=== PATIENT | female | born 2000 | race Caucasian/White ===

== ENCOUNTER → 2019-02-25 13:44 | Outpatient (CLI) | payer MEDICAID, SELFPAY ==
[2019-02-25 15:07] LABS: Absolute Lymphocyte Count 2.66 X10^3/ul (0.83-4.51); Absolute Neutrophil Count 7.9 X10^3/uL (2.0-7.7); Basophil# 0.03 X10^3/uL; Basophil% 0.3 % (0-1); Eosinophil# 0.13 X10^3/uL; Eosinophils% 1.1 % (0-5); Hematocrit 44.2 % (37-47); Hemoglobin 14.9 g/dl (12.0-15.0); Lymphocyte # 2.66 X10^3/ul (4.0); Lymphocyte % 23.1 % (19-41); Mean Corp Hgb Conc 33.7 g/gl (32-36); Mean Corpuscular Hgb 29.7 pg (27.0-32.0); Mean Corpuscular Volume 88.2 fL (81-99); Mean Platelet Vol. 10.5 fl (6.2-12.0); Monocyte# 0.77 X10^3/uL; Monocyte% 6.7 % (0-10); Neutrophil % 68.6 % (47-70); Platelet Count 263 K/mm3 (150-450); RBC Distribution Width CV 12.5 % (11.6-14.6); RBC Distribution Width SD 39.3 fl (35.1-43.9); Red Blood Count 5.01 M/mm3 (4.2-5.4); White Blood Count 11.5 K/mm3 (4.4-11.0)
[2019-02-25 15:08] LABS: POSITIVE COUNT NO; POSITIVE DIFFERENTIAL NO; POSITIVE MORPHOLOGY NO
[2019-02-25 15:22] LABS: Hemoglobin A1c 5.7 % (4.2-6.3)
[2019-02-25 15:38] LABS: ALB/GLOB Ratio 0.9 RATIO (0.9-2.4); AST(SGOT) 11 U/L (15-37); Alanine Aminotransfer ALT/SGPT 28 U/L (13-56); Albumin, Serum 3.5 g/dL (3.2-5.0); Alkaline Phosphatase 92 U/L (45-117); Anion Gap 5 (5-15); BUN 7 mg/dL (7-18); BUN/Creat Ratio 9.5 RATIO (10-20); Calcium,Total 8.9 mg/dL (8.5-10.1); Chloride 108 mmol/L (98-107); Cholesterol 171 mg/dL (200); Creatinine, Serum 0.74 mg/dL (0.55-1.02); EST Glomerular Filtration Rate 107 mL/min (>60); Est Glom Filt Rate - Afr Amer 129 mL/min (>60); Globulin 4.1 g/dL (2.2-4.2); Glucose 85 mg/dL (74-106); High Density Lipoprotein 44 mg/dL; Potassium 4.6 mmol/L (3.5-5.1); Protein, Total 7.6 g/dL (6.4-8.2); Sodium Level 140 mmol/L (136-145); Thyroid Stim Hormone (TSH) 0.78 uIU/mL (0.358-3.74); Triglycerides 96 mg/dL; Very Low Density Lipoprotein 19 mg/dL (5-40)
== END ==
PROVIDERS: Referring Provider Nurse Practitioner Family; Visit Provider Nurse Practitioner Family
DX: Z13.220 Encounter for screening for lipoid disorders (principal); F32.9 Major depressive disorder, single episode, unspecified; N92.1 Excessive and frequent menstruation with irregular cycle; Z86.32 Personal history of gestational diabetes
CPT/HCPCS: 36415; 80053; 80061; 83036; 84443; 85025

== ENCOUNTER → 2019-07-14 16:02 | Outpatient (CLI) | payer MEDICAID, SELFPAY ==
[2019-07-14 20:38] LABS: Chlamydia Trachomatis by PCR Negative (Negative); Neisserai gonorrhoeae by PCR Negative (Negative); Probe Check PASS; Sample Adequacy Control PASS; Specimen Processing Control PASS
== END ==
PROVIDERS: Visit Provider Advanced Practice Midwife
DX: Z11.3 Encounter for screening for infections with a predominantly sexual mode of transmission (principal)
CPT/HCPCS: 87491; 87591

== ENCOUNTER → 2019-07-19 13:09 | Outpatient (CLI) | payer MEDICAID, SELFPAY ==
[2019-07-19 15:54] LABS: Color, Urine Yellow (Yellow); Glucose, Dipstick Normal (Normal); Ketone-Dipstick 5 mg/dl (Negative); Leukocyte Esterase-Dipstick Negative /ul (Negative); Nitrite-Dipstick Negative (Negative); Occult Blood-Urine 25 /ul (Negative); Protein-Dipstick Negative (Negative); Specific Gravity, Urine 1.015 (1.002-1.030); Urine Bilirubin Dipstick Negative (Negative); Urine Clarity Cloudy (Clear); Urine Urobilinogen Normal (Normal); Urine pH 6.5 (5.0 - 8.0)
[2019-07-19 15:59] LABS: Absolute Lymphocyte Count 1.88 X10^3/uL (0.83-4.51); Absolute Neutrophil Count 6.9 X10^3/uL (2.0-7.7); Basophil# 0.03 X10^3/uL; Basophil% 0.3 % (0-1); Eosinophil# 0.06 X10^3/uL; Eosinophils% 0.6 % (0-5); Hematocrit 41.2 % (37-47); Hemoglobin 13.7 g/dL (12.0-15.0); Lymphocyte # 1.88 X10^3/ul (4.0); Lymphocyte % 20.3 % (19-41); Mean Corp Hgb Conc 33.3 g/dL (32-36); Mean Corpuscular Hgb 29.7 pg (27.0-32.0); Mean Corpuscular Volume 89.4 fL (81-99); Mean Platelet Vol. 10.9 fl (6.2-12.0); Monocyte# 0.37 X10^3/uL; NRBC Flagged by Analyzer 0 % (0-5); Neutrophil # 6.88 X10^3/uL (2.7-7.7); Neutrophil % 74.6 % (47-70); Platelet Count 222 K/mm3 (150-450); RBC Distribution Width CV 11.9 % (11.6-14.6); RBC Distribution Width SD 38.4 fl (35.1-43.9); Red Blood Count 4.61 M/mm3 (4.2-5.4); White Blood Count 9.2 K/mm3 (4.4-11.0)
[2019-07-19 16:20] LABS: Glucose Challenge Gest 1H 50g 132 mg/dL (70-140); Thyroid Stim Hormone (TSH) 1.06 uIU/mL (0.358-3.74)
[2019-07-19 16:30] LABS: Amphetamine Urine VISTA NEGATIVE (<1000 ng/mL); Barbiturate Urine VISTA NEGATIVE (< 200 ng/mL); Benzodiazepine Urine VISTA NEGATIVE (< 200 ng/mL); Cocaine Urine VISTA NEGATIVE (< 300 ng/mL); Ecstacy Urine VISTA NEGATIVE (< 500 ng/mL); Methadone Urine VISTA NEGATIVE (< 300 ng/mL); PCP Urine VISTA NEGATIVE (< 25 ng/mL); THC Urine VISTA POSITIVE (< 50 ng/mL); Vista UDS pH Range 6
[2019-07-19 17:56] LABS: COTININE Drug Screen Positive (<200 ng/mL)
[2019-07-20 10:10] LABS: HIV - WCH Non-Reactive (Nonreactive); Hepatitis B Surface Antigen Non-Reactive (Nonreactive); Hepatitis C Antibody Non-Reactive (Nonreactive); Rubella IgG 65.1 IU/mL; Vitamin D,25 Hydroxy 17.5 ng/mL (29.95-100.01)
[2019-07-22 02:41] LABS: Prenatal RPR NONREACTIVE (NONREACTIVE)
== END ==
PROVIDERS: Visit Provider Advanced Practice Midwife
DX: Z34.80 Encounter for supervision of other normal pregnancy, unspecified trimester (principal)
CPT/HCPCS: 36415; 80307; 81002; 82306; 82950; 84443; 85025; 86703; 86762; 86803; 87340

== ENCOUNTER 2019-10-29 20:50 | Outpatient (CLI) | payer MEDICAID, SELFPAY ==
[2019-10-29 20:35] VITALS: BP 123/74; PULSE 76; RESP 15; TEMP 36.8; O2SAT 99; BMI 44.1
[2019-10-29 21:19] VITALS: BMI 44.1
[2019-10-29 21:42] LABS: ROM Internal Control Test YES-OK TO RESULT pt. (Internal QC); ROM Patient Test Negative (Negative)
[2019-10-29 22:15] VITALS: RESP 16; TEMP 36.9
--- NOTE | 2019-10-29 22:36 | OB.TRI.NOTE ---
History of Present Illness Date of Service: 10/29/19 Was patient seen by the physician?: Yes Reason For Visit: R/O RUPTURE Date of Service: 10/29/19 Final GIOVANNI: 03/02/20 Final GIOVANNI Source: US <20 weeks Gestational age: 22 Weeks and 1 Days History of Present Illness: Pt noticed a lot of discharge this afternoon and is concerned that her water has broken Allergies No Known Allergies Allergy (Verified 10/29/19 21:21) Laboratory Studies: Laboratory Tests 10/29/19 Range/Units 21:05 Vag Amniotic Fld Detect Negative (Negative) Physical Exam Vitals: Vital Signs Temp Pulse Resp BP Pulse Ox 98.4 F 76 16 123/74 H 99 10/29/19 22:15 10/29/19 20:35 10/29/19 22:15 10/29/19 20:35 10/29/19 20:35 General: Alert, Oriented x3, Cooperative, No apparent distress HEENT: PERRLA, EOMI Abdomen: Soft, Non Tender, Non-Distended, Passing Flatus, Gravid, Obese Extremities:: No cyanosis, Normal pulses Neurological: Cranial nerves II-XII grossly intact, Deep Tendon Reflexes 2+/4 and Symmetrical, Neuro grossly intact Cervix Dilation (cm): 0 - firm, posterior Station: -3 Effacement (%): 0 NST - FHR Rate Baby A Baseline: 140 Variability:: Moderate Accelerations:: 10 x 10 Decelerations:: None NST Reactive:: Appropriate for gestational age Uterine Activity:: None Impression/Plan Assessment: 19yo at 22w1d gestation by 7w4d US Membranes intact, likely leukorrhea of Plan: Discharge home w/increased rest, fluids RTO next scheduled PNV
== END 2019-10-29 22:15 | disposition home or self-care (01) ==
LOC: WPOUT 20:55 → OBT 20:57
PROVIDERS: Visit Provider Advanced Practice Midwife
DX: O26.892 Other specified pregnancy related conditions, second trimester (principal); N89.8 Other specified noninflammatory disorders of vagina; Z3A.22 22 weeks gestation of pregnancy
CPT/HCPCS: 59025; 59050; 84112; 99218; G0378

== ENCOUNTER → 2019-12-14 09:35 | Outpatient (CLI) | payer MEDICAID, SELFPAY ==
[2019-12-14 10:40] LABS: Hematocrit 37.3 % (37-47); Hemoglobin 12.6 g/dL (12.0-15.0); Mean Corp Hgb Conc 33.8 g/dL (32-36); Mean Corpuscular Hgb 31.1 pg (27.0-32.0); Mean Corpuscular Volume 92.1 fL (81-99); Mean Platelet Vol. 10.5 fl (6.2-12.0); Platelet Count 234 K/mm3 (150-450); RBC Distribution Width CV 12.4 % (11.6-14.6); RBC Distribution Width SD 41.4 fl (35.1-43.9); Red Blood Count 4.05 M/mm3 (4.2-5.4); White Blood Count 12.3 K/mm3 (4.4-11.0)
[2019-12-14 10:56] LABS: Glucose Challenge Gest 1H 50g 195 mg/dL (70-140)
[2019-12-14 11:15] LABS: Amphetamine Urine VISTA NEGATIVE (<1000 ng/mL); Barbiturate Urine VISTA NEGATIVE (< 200 ng/mL); Benzodiazepine Urine VISTA NEGATIVE (< 200 ng/mL); Cocaine Urine VISTA NEGATIVE (< 300 ng/mL); Ecstacy Urine VISTA NEGATIVE (< 500 ng/mL); Methadone Urine VISTA NEGATIVE (< 300 ng/mL); PCP Urine VISTA NEGATIVE (< 25 ng/mL); THC Urine VISTA NEGATIVE (< 50 ng/mL); Vista UDS pH Range 6
[2019-12-14 12:24] LABS: Vitamin D,25 Hydroxy 11.4 ng/mL
== END ==
PROVIDERS: Visit Provider Obstetrics & Gynecology
DX: O99.323 Drug use complicating pregnancy, third trimester (principal); F12.90 Cannabis use, unspecified, uncomplicated; Z3A.00 Weeks of gestation of pregnancy not specified
CPT/HCPCS: 36415; 80307; 82306; 82950; 85027

== ENCOUNTER → 2019-12-16 09:57 | Outpatient (CLI) | payer MEDICAID, SELFPAY ==
[2019-12-16 10:53] LABS: Glucose GTT-Gestation. Fasting 92 mg/dL (<105)
[2019-12-16 12:26] LABS: Glucose GTT-Gestational 1 Hr 196 mg/dL (<190)
[2019-12-16 13:52] LABS: Glucose GTT-Gestational 3 Hr 94 L (<145)
[2019-12-16 14:40] LABS: Glucose GTT-Gestational 2 Hr 125 mg/dL (<165)
== END ==
PROVIDERS: Obstetrics & Gynecology; PCP Nurse Practitioner Family; Referring Provider Obstetrics & Gynecology; Visit Provider Obstetrics & Gynecology
DX: O99.810 Abnormal glucose complicating pregnancy (principal); Z3A.00 Weeks of gestation of pregnancy not specified
CPT/HCPCS: 36415; 82951; 82952

== ENCOUNTER 2019-12-29 13:48 | Outpatient (RCR) | payer MEDICAID, SELFPAY | END 2019-12-29 23:59 | disposition home or self-care (01) | LOC: DC 13:48 | PROVIDERS: PCP Nurse Practitioner Family; Visit Provider Obstetrics & Gynecology | DX: Z71.3 Dietary counseling and surveillance (principal); O24.419 Gestational diabetes mellitus in pregnancy, unspecified control; Z3A.00 Weeks of gestation of pregnancy not specified | CPT/HCPCS: 97802 ==

== ENCOUNTER → 2020-02-08 | Outpatient (CLI) | payer MEDICAID, SELFPAY | END | disposition home or self-care (01) | PROVIDERS: Referring Provider Obstetrics & Gynecology; Visit Provider Obstetrics & Gynecology | DX: Z36.85 Encounter for antenatal screening for Streptococcus B (principal) | CPT/HCPCS: 87077; 87081; 87186 ==

== ENCOUNTER 2020-02-25 07:04 | Inpatient (IN) | payer MEDICAID, SELFPAY ==
[2020-02-25] VITALS (60 sets, daily range): BP systolic 87–147; BP diastolic 40–101; PULSE 48–101; TEMP 36.1–37.1; O2SAT 94–100; BMI 44.5
[2020-02-25] MEDS: Lactated Ringers 1,000 ML 50 ML IV (07:35)
[2020-02-25] MEDS: Oxytocin 30 units/NS 500 ml 30 UNITS/500 ML IV.SOLN IV (07:58)
[2020-02-25 08:09] LABS: Absolute Lymphocyte Count 2.56 X10^3/uL (0.83-4.51); Absolute Neutrophil Count 10.9 X10^3/uL (2.0-7.7); Basophil# 0.03 X10^3/uL; Basophil% 0.2 % (0-1); Eosinophils% 0.7 % (0-5); Hematocrit 36.1 % (37-47); Hemoglobin 12.3 g/dL (12.0-15.0); Lymphocyte # 2.56 X10^3/ul (4.0); Lymphocyte % 17.8 % (19-41); Mean Corp Hgb Conc 34.1 g/dL (32-36); Mean Corpuscular Volume 90.9 fL (81-99); Mean Platelet Vol. 10.6 fl (6.2-12.0); Monocyte# 0.74 X10^3/uL; Monocyte% 5.1 % (0-10); NRBC Flagged by Analyzer 0 % (0-5); Neutrophil # 10.89 X10^3/uL (2.7-7.7); Neutrophil % 75.9 % (47-70); Platelet Count 271 K/mm3 (150-450); RBC Distribution Width CV 12.6 % (11.6-14.6); RBC Distribution Width SD 41.4 fl (35.1-43.9); Red Blood Count 3.97 M/mm3 (4.2-5.4); White Blood Count 14.4 K/mm3 (4.4-11.0)
--- NOTE | 2020-02-25 08:54 | HP.PCM_ITS ---
- Problem List (1) 39 weeks gestation of Status: Acute (2) Group beta Strep positive Status: Acute History Date of Admission: 02/25/20 Final GIOVANNI: 03/02/20 Final GIOVANNI Source: US <20 weeks Gestational age: 39 Weeks and 1 Days History of this : This is a 19 year-old, G [3], P [1], at 39 weeks gestational age here for an elective induction of labor. Allergies No Known Allergies Allergy (Verified 10/29/19 21:21) Home Medications: Home Medications Albuterol Inhaler [Ventolin Hfa] 1 - 2 puff INHALATION PRN PRN 10/29/19 Breo Ellipta 100-25 Mcg INH 1 puff INHALATION DAILY 10/29/19 Vits [Prenatabs FA] 1 tab PO DAILY 10/29/19 Fluoxetine [Prozac] 20 mg PO DAILY 02/25/20 Smoking Status: Current every day smoker Alcohol: None - just Prozac Substance Use Type: Anxiety Medications Number of Fetus(es): 1 NST - FHR Rate Baby A Baseline: 145 Variability:: Moderate Accelerations:: 15 x 15 Decelerations:: None NST Reactive:: Yes FHR Category:: Category I Uterine Activity:: irritability History Past Pregnancies: PRIOR DELIVERY HISTORY DEL DATE GEST LAB WT LB WT OZ TYPE ANES LABOR TX Jun 17 40 72 5 15 Vag Epidural No 18 Ceasar 19 4 0 0 0 Sab None No Labs: Mom's Labs & Results 02/25/20 02/25/20 07:35 07:35 WBC 14.4 H RBC 3.97 L Hgb 12.3 Hct 36.1 L MCV 90.9 MCH 31.0 MCHC 34.1 RDW Std Deviation 41.4 RDW Coeff of Elle 12.6 Plt Count 271 MPV 10.6 Immature Gran % (Auto) 0.300 Neut % (Auto) 75.9 H Lymph % (Auto) 17.8 L Pacific % (Auto) 5.1 Eos % (Auto) 0.7 Baso % (Auto) 0.2 Absolute Neuts (auto) 10.9 H Absolute Lymphs (auto) 2.56 Nucleated RBC % 0 Blood Type Pending Antibody Screen Pending Course Did the patient receive Yes care? Labs Blood Type: O RH: POSITIVE RPR/VDRL/Syphilis Nonreactive Rubella status Immune HbSAg Negative Date Done: 07/19/19 Chlamydia Negative Gonorrhea Negative HIV/AIDS Non-Reactive Group B Strep: Positive Social History Hx Smoking Yes Smoking Status Current every day smoker Substance Use Type Anxiety Medications How long have you used Zoloft stopped at 20 weeks substances (years)? Prozac since 12/03/19 What date/time did you last Prozac taken 02/24/20 2100 use any of the above? Have you had any previous Denies inpatient or outpatient treatment Expected Infant Delivery Method: Spontaneous Vaginal Number of Visits: 11 Review of Systems Constitutional: Denies: Chills, Fever, Weight Change HEENT: Denies: Head Aches, Sinus Congestion, Sinus Drainage Cardiovascular: Denies: Chest Pain, Palpitations Respiratory: Denies: Cough, Shortness of breath at rest, Sputum production Gastrointestinal: Denies: Abdominal Pain, Nausea, Vomiting Genitourinary: Denies: Dysuria Musculoskeletal: Denies: Joint Pain, Joint Tenderness Skin: Denies: Rash, Wounds Neurological: Denies: Numbness, Tingling, Focal weakness Psychiatric: Reports: Anxiety. Denies: Depression, Homicidal Ideations, Suicidal Ideations Hematologic/ Lymphatic: Denies: Easy Bruising, Easy Bleeding Physical Exam Vitals: Vital Signs Temp Pulse BP Pulse Ox 97.0 F L 73 124/73 H 99 02/25/20 07:46 02/25/20 07:48 02/25/20 07:46 02/25/20 07:48 General: Alert, Oriented x3, No apparent distress HEENT: Atraumatic, Normocephalic. Negative for: Thyromegaly, Lymphadenopathy Cardiovascular: Regular rate, Regular Rhythm Lungs: Clear to auscultation Abdomen: Bowel Sounds Present, Gravid Neurological: Deep Tendon Reflexes 2+/4 and Symmetrical, Neuro grossly intact [employer]: Normal external genitalia. Negative for: Vulvar lesions Estimated gestational size: Appropriate for gestational size Presentation: Cephalic Cervix Dilation (cm): 2 Station: -3 Effacement (%): 40 Assessment/Plan All Active Problems 39 weeks gestation of (Acute) Group beta Strep positive (Acute) A/P: This is a 19 year-old, G [3], P [1], at 39 weeks gestational age. Elective induction of labor GBS+, plan IV Penicillin Pitocin at 2u AROM clear fluid Plans epidural for pain management Expect
[2020-02-25] MEDS: Lactated Ringers 500 ML 999 ML IV ×2 (10:20→12:54)
[2020-02-25] MEDS: fentaNYL-bupivacaine (epidural) 100 ML BAG EPIDURAL ×3 (11:55→22:12)
[2020-02-25] MEDS: Lactated Ringers 1,000 ML 200 ML IV ×2 (14:40→19:44)
[2020-02-25] MEDS: Oxytocin 30 units/NS 500 ml 30 UNITS/500 ML IV.SOLN 334 UNITS IV (22:29)
--- NOTE | 2020-02-25 22:57 | PCM.OPRPT ---
Problem List (1) 39 weeks gestation of Status: Acute (2) Group beta Strep positive Status: Acute Vaginal Delivery Maternal Presentation: Elective Induction Method of Induction: Pitocin, Amniotomy Amniotic Membrane Rupture Type: Artificial Amniotic Fluid Description: Clear Final GIOVANNI: 03/02/20 Gestational age: 39 Weeks and 1 Days Date of Procedure: 02/25/20 Pre-Operative Diagnosis: Elective IOL Post-Operative Diagnosis: S/P Surgery/ Procedure Performed: Spontaneous Vaginal Delivery Anesthesiologist: Rob Type of Anesthesia: Epidural Description of Procedure: Patient had spontaneous urge to push and 10/100/+2. Upon writers arrival to room anesthesia bedside trying to make patient more comfortable. With three pushes head delivered in OA to ARMOND followed spontaneously by body. The male was placed on the maternal abdomen and further attended by nursery personnel with bulb suction and stimulation. The cord was doubly clamped then cut by FOB under CNM supervision at approximately 5 minutes of life. Cord blood collected. IV Pitocin started per protocol. With gentle cord traction spontaneous delivery of placenta. Fundal massage given. Fundus noted to be firm and midline, but wiith continual trickle of blood. Manual expression of clots from the uterine cavity by CNM. Bilateral first degree periurethral lacerations noted with good hemostasis and no repair needed. First degree perineal laceration noted and repaired with a 3.0 rapide double under epidural anesthesia. Good hemostasis noted. EBL 250. Sponge and needle count correct x2. Apgars 8/9. Presentation: Vertex, ARMOND Placental Delivery Description: Spontaneous Placenta Disposition: [facility] Cord Vessel Description: 3 Vessels Cord Entanglement: None Drain: Cavazos to straight drain Estimated Blood Loss: 250 Infant A gender: Male Episiotomy Description: None Laceration: 1st degree - bilateral periurethral and perineal Medications given after delivery: IV Pitocin
[2020-02-25] MEDS: Acetaminophen 500 MG Tablet 1000 MG PO (23:36)
[2020-02-26] VITALS (9 sets, daily range): BP systolic 107–131; BP diastolic 52–82; PULSE 50–86; RESP 14–18; TEMP 36.1–36.4; O2SAT 96–99
[2020-02-26] MEDS: Methylergonovine 0.2 MG/ML Ampul IM (00:49)
[2020-02-26] MEDS: Ibuprofen 600 MG Tablet PO ×2 (06:48→16:11)
--- NOTE | 2020-02-26 07:35 | CPS ---
Pt does not want to take the therapeutic interchange for her Breo, pt wants to take her own Breo, RN aware.
[2020-02-26] MEDS: FLUoxetine 20 MG Capsule PO (10:18)
[2020-02-26] MEDS: Prenatal Vits Tablet 1 TABLET PO (10:19)
--- NOTE | 2020-02-26 11:58 | PCM.PN.OB ---
Patient Problems: Active and Suspected Problems 39 weeks gestation of (Acute) Group beta Strep positive (Acute) Subjective: Very tired with little sleep overnight. Bottle feeding son well. Cramping, but Motrin is helping. Denies heavy bleeding. Objective: VSS. Fundus, firm, mildine u/2. Lochia rubra moderate. Vaginal edema with ice pack noted. - Physical Exam Vitals/I&O's: Vital Signs Temp Pulse Resp BP Pulse Ox 97.3 F L 58 L 18 112/52 L 97 02/26/20 10:27 02/26/20 10:27 02/26/20 10:27 02/26/20 10:27 02/26/20 10:27 Oxygen Delivery Method Room Air Weight: 125.191 kg Body Mass Index (BMI) 44.5 Intake and Output for Last 24 Hours 02/24/20 02/25/20 02/26/20 23:59 23:59 23:59 Intake Total 3791.47 / 3791.47 327.43 / 327.43 Output Total 600 / 600 600 / 600 Balance 3191.47 / 3191.47 -272.57 / -272.57 General: Alert, Oriented x3, Cooperative HEENT: Atraumatic, PERRLA, EOMI, Normocephalic Neck: Supple, No JVD, Negative Carotid Bruits Lungs: Clear to auscultation, Normal air movement Cardiovascular: Regular rate, No murmurs Abdomen: Bowel Sounds Present, Soft, Non Tender, Passing Flatus Extremities: No edema, Capillary Refill Less than 3 Seconds Skin: No rashes, No breakdown Musculoskeletal: No Tenderness to Palpation of Joints or Extremities Neurological: Cranial nerves II-XII grossly intact Psych/Mental Status: Normal Affect, Appropriate Current Medications Acetaminophen (Tylenol) 1,000 mg PO Q8H PRN PRN PRN Reason: Pain Score 1-3/10 Last Admin: 02/25/20 23:36 Dose: 1,000 mg Documented by: Albuterol Sulfate (Ventolin Aerosols) 2.5 mg INHALATION Q4H PRN PRN Bisacodyl (Dulcolax) 10 mg RECTAL UD PRN PRN Reason: If no BM Fluoxetine HCl (Prozac) 20 mg PO DAILY EVERT Last Admin: 02/26/20 10:18 Dose: 20 mg Documented by: Hydrocortisone (Hytone) 1 applic TOPICAL TID PRN PRN; Protocol PRN Reason: Discomfort Ibuprofen (Motrin) 600 mg PO Q6H PRN PRN PRN Reason: Pain Score 1-3/10 Last Admin: 02/26/20 06:48 Dose: 600 mg Documented by: Methylergonovine Maleate (Methergine) 0.2 mg IM X1 PRN PRN Reason: Excess bleeding/uterine atony Last Admin: 02/26/20 00:49 Dose: 0.2 mg Documented by: Ondansetron HCl (Zofran) 4 mg IV Q4H PRN PRN PRN Reason: Nausea Oxycodone HCl (Oxyir) 5 - 10 mg PO Q4H PRN PRN PRN Reason: Pain Score 4-10/10 Multivit/Folic Acid/Iron (Prenatabs Fa) 1 tablet PO DAILY EVERT Last Admin: 02/26/20 10:19 Dose: 1 tablet Documented by: Senna/Docusate Sodium (Senokot-S, Jennifer-Colace) 1 - 2 tablet PO DAILY PRN PRN PRN Reason: Constipation Simethicone (Mylicon) 80 mg PO PCHS PRN PRN Reason: Indigestion/Stomach pain Sodium Chloride () 5 - 15 ml IV UD PRN PRN Reason: SALINE FLUSH Throat Lozenges (Dermoplast (Sp)) 1 applic TOPICAL 4X/DAY PRN PRN; Protocol PRN Reason: Pain/Inflammation Last Admin: 02/26/20 00:25 Dose: 1 applic Documented by: Medical Necessity - Tobacco Use Smoking Status: Current every day smoker Assessment/Plan All Active Problems 39 weeks gestation of (Acute) Group beta Strep positive (Acute) A/P: S/P day #1 Bottle feeding son Normal involution and course Educated on contraception options To discharge tomorrow morning
--- NOTE | 2020-02-27 01:05 | NURSING ---
RN called to room by patient. Patient reported passing a large clot into the toilet. This RN evaluated clot and it looked medium in size. Larger than a grape but smaller than an egg. Assessed fundus and it was -1, midline, and semi-firm. Massaged to completely firm. No large gushes during massage. Vital signs stable with BP: 129/76, HR: 98, Resp: 18, temp 98.8. Patient stated it was the first clot she had passed since delivery and that bleeding on the pad was light. After assessment, this RN decided no further action was needed at this time. Instructed patient to call RN to room if another clot was passed for further assessment.
[2020-02-27 01:13] VITALS: BP 118/52; PULSE 62; RESP 16; TEMP 36.6
[2020-02-27] MEDS: Ibuprofen 600 MG Tablet PO (03:56)
--- NOTE | 2020-02-27 07:53 | PCM.PN.OB ---
Patient Problems: Active and Suspected Problems 39 weeks gestation of (Acute) Group beta Strep positive (Acute) Subjective: Doing well. Mild cramping, but denies actual pain. Denies heavy bleeding. Bottle feeding son and feeling ready to go home. Objective: VSS. Fundus is firm, midline, u/2. Lochia rubra moderate - Physical Exam Vitals/I&O's: Vital Signs Temp Pulse Resp BP Pulse Ox 97.9 F 62 16 118/52 L 96 02/27/20 01:13 02/27/20 01:13 02/27/20 01:13 02/27/20 01:13 02/26/20 16:00 Oxygen Delivery Method Room Air Weight: 125.191 kg Body Mass Index (BMI) 44.5 Intake and Output for Last 24 Hours 02/25/20 02/26/20 02/27/20 23:59 23:59 23:59 Intake Total 3791.47 / 3791.47 327.43 / 327.43 Output Total 600 / 600 1200 / 1200 Balance 3191.47 / 3191.47 -872.57 / -872.57 General: Alert, Oriented x3, Cooperative HEENT: Atraumatic, PERRLA, EOMI, Normocephalic Neck: Supple, No JVD, Negative Carotid Bruits Lungs: Clear to auscultation, Normal air movement Cardiovascular: Regular rate, No murmurs Abdomen: Bowel Sounds Present, Soft, Non Tender Extremities: No edema, Capillary Refill Less than 3 Seconds Skin: No rashes, No breakdown Musculoskeletal: No Tenderness to Palpation of Joints or Extremities Neurological: Cranial nerves II-XII grossly intact Psych/Mental Status: Normal Affect, Appropriate Current Medications Acetaminophen (Tylenol) 1,000 mg PO Q8H PRN PRN PRN Reason: Pain Score 1-3/10 Last Admin: 02/25/20 23:36 Dose: 1,000 mg Documented by: Albuterol Sulfate (Ventolin Aerosols) 2.5 mg INHALATION Q4H PRN PRN Bisacodyl (Dulcolax) 10 mg RECTAL UD PRN PRN Reason: If no BM Fluoxetine HCl (Prozac) 20 mg PO DAILY EVERT Last Admin: 02/26/20 10:18 Dose: 20 mg Documented by: Hydrocortisone (Hytone) 1 applic TOPICAL TID PRN PRN; Protocol PRN Reason: Discomfort Ibuprofen (Motrin) 600 mg PO Q6H PRN PRN PRN Reason: Pain Score 1-3/10 Last Admin: 02/27/20 03:56 Dose: 600 mg Documented by: Methylergonovine Maleate (Methergine) 0.2 mg IM X1 PRN PRN Reason: Excess bleeding/uterine atony Last Admin: 02/26/20 00:49 Dose: 0.2 mg Documented by: Ondansetron HCl (Zofran) 4 mg IV Q4H PRN PRN PRN Reason: Nausea Oxycodone HCl (Oxyir) 5 - 10 mg PO Q4H PRN PRN PRN Reason: Pain Score 4-10/10 Multivit/Folic Acid/Iron (Prenatabs Fa) 1 tablet PO DAILY EVERT Last Admin: 02/26/20 10:19 Dose: 1 tablet Documented by: Senna/Docusate Sodium (Senokot-S, Jennifer-Colace) 1 - 2 tablet PO DAILY PRN PRN PRN Reason: Constipation Simethicone (Mylicon) 80 mg PO PCHS PRN PRN Reason: Indigestion/Stomach pain Last Admin: 02/27/20 03:56 Dose: 80 mg Documented by: Sodium Chloride () 5 - 15 ml IV UD PRN PRN Reason: SALINE FLUSH Throat Lozenges (Dermoplast (Sp)) 1 applic TOPICAL 4X/DAY PRN PRN; Protocol PRN Reason: Pain/Inflammation Last Admin: 02/26/20 00:25 Dose: 1 applic Documented by: Medical Necessity - Tobacco Use Smoking Status: Current every day smoker Assessment/Plan All Active Problems 39 weeks gestation of (Acute) Group beta Strep positive (Acute) A/P: Post vaginal delivery day #2 Bottle feeding Normal course and involution To follow up for a 2 week telehealth appt and a 6 week PP appt Discharge home today
[2020-02-27 07:55] VITALS: BP 106/47; PULSE 62; RESP 16; TEMP 36.1; O2SAT 99
--- NOTE | 2020-02-27 07:55 | DCINST_ITS ---
Discharge Diet: No Restrictions Discharge Activity: Return to Normal Activity, May not drive while taking narcotic pain medications., May Shower May resume sexual activity in: 4-6 weeks Additional Activity Instructions:: Nothing in the vagina for 4-6 weeks. You may return to work/school in 6 weeks. Call your doctor if your incision/area has: Continuous Slow Oozing, Sudden Increased Bleeding, Increased Pain/ Swelling, Increased Redness, Foul Smelling Discharge Additional Instructions: If you experience any of the following, contact your healthcare provider. * Bleeding that soaks a pad every hour for 2 hours * Fever 100.4 or higher * Unrelieved incision or abdominal pain * Swelling, redness, discharge or bleeding from your incision or episiotomy site * Your incision begins to separate * Problems urinating (including inability to urinate or burning while urinating). * Visual changes * Severe headache * Flu-like symptoms * Pain or redness in one of both of your breasts * Pain, warmth, tenderness or swelling in your legs, especially the calf area * Frequent nausea and vomiting * Symptoms of depression or anxiety If you experience any of the following, call 911 or go to the nearest Emergency Room. * Chest pain * Problems breathing * Seizure activity * Partial or complete paralysis of a body part, slurred speech, weakness or drooping of the face, or a sudden inability to walk or hold your balance Allergies/Adverse Reactions: Allergies No Known Allergies Allergy (Verified 10/29/19 21:21) Medications to take at Discharge Albuterol Inhaler [Ventolin Hfa] 1 - 2 puff INHALATION PRN PRN 10/29/19 Breo Ellipta 100-25 Mcg INH 1 puff INHALATION DAILY 10/29/19 Vits [Prenatabs FA] 1 tab PO DAILY 10/29/19 Fluoxetine [Prozac] 20 mg PO DAILY 02/25/20 Please Follow Up With: Debby Fried CNM When: Call to make an appointment with your CNM in 2 weeks for a telehealth visit. Then 6 weeks for regular PP visit. Test Results: Test results from this visit will be discussed in further detail at your follow- up appointment, if applicable.
[2020-02-27] MEDS: FLUoxetine 20 MG Capsule PO (09:28)
[2020-02-27] MEDS: Prenatal Vits Tablet 1 TABLET PO (09:28)
--- NOTE | 2020-02-27 11:00 | CASEMGMT ---
Social Work Assessment Labor and Delivery Unit Patient Address: [address] [place] [address], [facility] [address], [place] [address] Phone number: [phone] Date of Referral: 02.26.2020 Time of Referral: 358 Referred By: Dr. Baker Date of Intervention: 02.27.2020 Time of Intervention: 1100 Reason for Referral: mental health, maternal history of depression and anxiety. History obtained from: medical records, mother of baby (MOB) Simon Newman, and father of baby (FOB) Malcolm Magdaleno Household composition: MOB, FOB, and their older daughter live in a 2 bedroom trailer. Reported to be safe and adequate. Patient's parent/guardian status: MOB who is age 20 and FOB (age 19) have been together for 4 years Privately MOB denies any form of abuse, control, or intimidation. MOB and FOB now have 2 children: baby Fili Magdaleno (born 02.25.2021) and Mary Magdaleno (born 06.19.2017). Medical History: MOB is G3, P1 to 2 after delivering Fili. care started at 7 weeks gestation. KRYSTAL has history of Asthma. History of first trimester loss in March. Baby was born with Apgars 8 and 9at 1 and 5 minutes of life. Birthweight 8 pounds 1 ounce. Educational Status: MOB complete the 11th grade, did not finish the 12th. Reports ability to read, write, and to understand what is read. Financial Status: KRYSTAL works at [employer] but has been off of work for the last couple of months related to COVID pandemic/ status/higher risk due to asthma. FOB is a stay at home dad.. Income is limited. FOB reports his father and grandparents have been helping out. Infant Supplies: MOB and FOB report to have needed supplies for baby including car seat, sleep space, clothes, diapers, wipes, bottles, and formula. Childcare/Caregiver(s): FOB is primary caregiver. Transportation: No reported issues. Programs/Agencies Involved: [employer]. S for food and medical. WIC. MOB was working with [facility] for counseling ([place]) and case management ([place]). MOB reports not actively going to [facility] but knows how to get into contact should feel the need to do so. Children Services/Legal Issues: Denies legal issues. Denies past or present involvement with children services. Behavioral Health Issues: Mental Health History: MOB reports has had depression and anxiety for years now and has been in counseling for such. MOB reports history of suicidal thoughts couple of years ago, not attempt or planning reported. MOB denies any thoughts of suicide during this . MOB reports to be on Prozac and this is working well. History of Zoloft and reports that this does not work well for MOB. Substance Use History: MOB denies any alcohol use or abuse issue. Denies history of using cocaine, heroine, meth, or narcotic pills. MOB endorses use of marijuana one time only during this , in July, after KRYSTAL's mother . KRYSTAL does smoke tobacco. Family History: Not discussed. Drug Screens: Maternal drug screen positive on 07.19.2019 and then negative on 12.14.2019. No testing performed on baby. Family/Social Stressors: KRYSTAL's mother in July after a short shelby with Cancer. Limited income based on the fact that neither parent has been working and FOB made comment that his family has been helping out. MOB did make comments during assessment that Fili does not like MOB but likes NIC as baby stops crying when the FOB holds the baby. MOB did also make comment that is has been hard being off of work, that likes to be out of the house, so isolating with KURT has been hard. MOB also made comment that her friends are not always supportive of NIC being a stay at home dad while KRYSTAL works. Support Systems: MOB reports NIC, his father and his grandparents are main support system. Depression/Shaken Baby/Safe Sleeping : MOB denies any history of depression. Educated parents to risk factors and importance of seeking out help and support should the need arise. MOB's [place] Depression Screen with a score of 5 this date, falling below threshold for depression. Symptoms review with MOB. Educated to shaken baby and safe sleeping. ASSESSMENT: Met with MOB and FOB together and then alone with MOB to address depression screening/DV/substance use issues. MOB and FOB both cooperative with social work visit. MOB affect constricted, would smile but not a lot of range in emotion. MOB held baby during social work visit, kept pacifier to baby's mouth, and made several comment about how the baby does not like the MOB. MOB voices feeling she has a connection with the baby, a good one, but perception that the baby does not like MOB as well as the FOB. Offered assurance that every baby is different, some are more fussy than others, and that because baby cries does not mean the baby does not like MOB. Supportive listening offered however in relation to MOB's statements. Encouraged MOB to continue with antidepressant medications, and also to consider counseling if symptoms increase or start to cause MOB distress. MOB voiced agreement. MOB and FOB both agree to an Early Had Start referral for both children. Did note edgerman in baby's chart about comment made by the MOB on limited amount of money in the bank account. Parents report to have needed supplies for baby and other child, and deny concerns with food or essential needs to live. FOB reports his family is willing to help out when needed. Safe Plan of Care for infant related to substance use: MOB states marijuana use was one time only and plans to abstain. Tobacco smoking is to be done outside of the home moving forward.m Faxed Early Head Start referral to [facility], form signed by MOB with agreement.. PLAN: MOB and baby to discharge home. [facility] resources and depression packet given for home going use. Early Head Start referral made. Do plan to call children services due to early exposure to marijuana as required by the [place] law. No other services requested or indicated. -YESSI An, DR[employer]
--- NOTE | 2020-03-01 15:30 | CASEMGMT ---
Social Work Labor and Delivery Unit Referral to [facility] ([facility]) and referral given to Rebecca Russell ([phone], extension [phone]) related to [place] Law and concern for substance exposed infant in utero. Positive maternal test on 07.19.2019. One subsequent negative test on 12.14.2019. No testing on baby. Concern for possible bonding as related to mother of baby (MOB) comments to this law writer that the baby does not like MOB. Brief maternal and histories reported. No further referrals requested or indicated. Reported strength in that family was willing to have an Early Head Start referral for both children. -DAKSHA An, CHIEF OPHTHALMIC TECHNICIAN
== END 2020-02-27 11:15 | disposition home or self-care (01) | DRG 560 ==
PROVIDERS: Admitting Provider Obstetrics & Gynecology; Visit Provider Obstetrics & Gynecology
DX: O75.9 Complication of labor and delivery, unspecified (principal); O70.0 First degree perineal laceration during delivery; O71.82 Other specified trauma to perineum and vulva; O99.824 Streptococcus B carrier state complicating childbirth; O99.334 Smoking (tobacco) complicating childbirth; F17.200 Nicotine dependence, unspecified, uncomplicated; Z37.0 Single live birth; Z3A.39 39 weeks gestation of pregnancy
CPT/HCPCS: 59025; 59050; 85025; 86850; 86900; 86901; 99218; J7120; G0378

== ENCOUNTER → 2021-08-19 15:36 | Outpatient (CLI) | payer MEDICAID, SELFPAY ==
[2021-08-23 18:24] LABS: HPV Reflexed? NOT INDICATED
== END ==
PROVIDERS: Visit Provider Obstetrics & Gynecology
DX: Z12.4 Encounter for screening for malignant neoplasm of cervix (principal)
CPT/HCPCS: 88175; G0145

== ENCOUNTER 2024-07-01 07:41 | Inpatient (IN) | payer MEDICAID, SELFPAY ==
[2024-07-01] VITALS (66 sets, daily range): BP systolic 102–144; BP diastolic 52–78; PULSE 46–144; RESP 14–16; TEMP 36.4–36.9; O2SAT 96–100; BMI 34.6
[2024-07-01] MEDS: Lactated Ringers 1,000 ML 999 ML IV ×2 (08:00→13:37)
[2024-07-01] MEDS: Oxytocin 15 Units/NS 250ml 15 UNITS/250 ML IV.SOLN 2 UNITS IV (08:29)
[2024-07-01 08:34] LABS: Absolute Lymphocyte Count 2.63 X10^3/uL (0.83-4.51); Absolute Neutrophil Count 10.7 X10^3/uL (2.0-7.7); Basophil# 0.04 X10^3/uL; Basophil% 0.3 % (0-1); Eosinophils% 0.7 % (0-5); Hematocrit 40.6 % (37-47); Hemoglobin 14.2 g/dL (12.0-15.0); Lymphocyte # 2.63 X10^3/ul (0.83-4.51); Lymphocyte % 18.4 % (19-41); Mean Corpuscular Hgb 32.7 pg (27.0-32.0); Mean Corpuscular Volume 93.5 fL (81-99); Mean Platelet Vol. 10.3 fl (6.2-12.0); Monocyte# 0.71 X10^3/uL; NRBC Flagged by Analyzer 0 % (0-5); Neutrophil # 10.72 X10^3/uL (2.7-7.7); Neutrophil % 75.2 % (47-70); Platelet Count 220 K/mm3 (150-450); RBC Distribution Width SD 41.9 fl (35.1-43.9); Red Blood Count 4.34 M/mm3 (4.2-5.4); White Blood Count 14.3 K/mm3 (4.4-11.0)
--- NOTE | 2024-07-01 08:49 | HP.PCM.OB_ITS ---
HPI - General General Date of Admission: 07/01/24 HPI Narrative MC MONTOYA, is a 24 F who presents at 41w3d for induction of labor. Maternal Data Information GIOVANNI Calculator Estimated Delivery Date Method Current WG Current Estimate 06/21/24 Manual 41w 3d [facility] Medical History (Updated 07/01/24 @ 13:04 by Amarilys Canales CNM) 39 weeks gestation of Group beta Strep positive Heart murmur Asthma Depression Anxiety Home Medications ?Medication ?Instructions ?Recorded ?Last Taken ?Type Breo Ellipta 100-25 Mcg INH 1 puff inhalation DAILY Asthma 10/29/19 02/22/20 21:00 History albuterol sulfate 90 mcg/actuation 1 - 2 puff inhalation PRN PRN 10/29/19 06/30/24 History aerosol inhaler Asthma vits,calcium no.78-iron 1 tab PO DAILY 10/29/19 02/24/20 21:00 History fumarate-folic acid 29 mg-1 mg tablet fluoxetine 20 mg capsule 20 mg PO DAILY Depression 02/25/20 02/24/20 19:00 History aspirin 81 mg tablet,delayed 81 mg PO DAILY 07/01/24 06/30/24 History release (Adult Low Dose Aspirin) Allergy/AdvReac Type Severity Reaction Status Date / Time No Known Allergies Allergy Verified 07/01/24 08:21 Family History (Updated 07/01/24 @ 09:00 by Jeanine Nunez) Grandmother Cancer of thyroid Surgical History (Updated 07/01/24 @ 08:59 by Jeanine Nunez) [place] teeth extracted History of cholecystectomy History of placement of ear tubes Social History Smoking Status: Current every day smoker History Elective abortions Hx Para 2 Spontaneous abortions Hx # Term Pregnancies Ectopic pregnancies Hx # Pregnancies Multiple births # of living children NST FHR Rate Baby A Baseline: 145 Variability:: Moderate Accelerations:: 15 x 15 Decelerations:: Variable FHR Category:: Category II Uterine Activity:: Irregular, mild ROS Constitutional Constitutional: Reports systems reviewed and no addt'l complaints, except as documented; Denies headache(s) Eyes Eyes: Denies acute decrease in peripheral vision, blurry vision or change in vision ENT HEENT: Reports systems reviewed and no addt'l complaints, except as documented Cardiovascular Cardiovascular: Denies chest pain or dizziness Respiratory/Chest Respiratory/Chest: Denies cough, dyspnea, dyspnea on exertion, shortness of breath at rest or shortness of breath with exertion Gastrointestinal Gastrointestinal: Denies abdominal pain, diarrhea, nausea or vomiting Genitourinary Genitourinary: Denies abdominal discomfort Musculoskeletal Musculoskeletal: Denies limited range of motion Integumentary Integumentary: Reports systems reviewed and no addt'l complaints, except as documented Neurologic Neurologic: Reports systems reviewed and no addt'l complaints, except as docume nted Psychiatric Psychiatric: Reports systems reviewed and no addt'l complaints, except as documented Endocrine Endocrinology: Reports systems reviewed and no addt'l complaints, except as documented Hematologic/Lymphatic Hematologic/Lymphatic: Reports systems reviewed and no addt'l complaints, except as documented Allergic/Immunologic Allergic/Immunologic: Reports systems reviewed and no addt'l complaints, except as documented Vital Signs Vital Signs Vital Signs: 07/01/24 08:02 07/01/24 08:02 07/01/24 08:02 Temperature 98.0 F Temperature Source Temporal Pulse Rate Respiratory Rate 16 Blood Pressure BP Systolic BP Diastolic Pulse Ox 07/01/24 08:03 07/01/24 08:03 07/01/24 08:03 Temperature Temperature Source Pulse Rate 77 Respiratory Rate Blood Pressure 119/76 BP Systolic 119 BP Diastolic 76 Pulse Ox 97 Weight Weight: 221 lb Body Mass Index (BMI) 34.6 Physical Exam Const alert and oriented x3 General Appearance: cooperative Orientation / Consciousness: awake, oriented to person, oriented to place and oriented to time Exam Limitations: no limitations HEENT normocephalic Head and Scalp: normal to inspection, normocephalic and atraumatic Face and Sinus: normal facial exam Eyes General Eye: normal appearance of both eyes Neck full ROM Chest Chest: symmetrical chest wall rise Resp normal respiratory effort and normal air movement Auscultation: clear to auscultation bilaterally Cardio regular rate, regular rhythm, S1 normal heart sound, S2 normal heart sound, no murmurs, no rub, no gallops and no clicks GI normal to inspection, nondistended, normoactive bowel sounds and non-tender appearance of the vagina normal Bladder / Kidney Exam: no CVA tenderness Manual OB Exam: estimated gestational size appropriate, presentation cephalic, dilated 4cm, effaced 60%, station -2 and other intact bag of water Back/Spine normal ROM Extremity normal to inspection and full ROM Skin no rashes or lesions noted Neuro oriented x3, CN's II-XII intact bilaterally and moves all extremities Sensorium / Orientation: awake, alert and oriented to person Motor Exam: clonus absent Deep Tendon Reflexes: Rt Patellar (L4): 2+ and Lt Patellar (L4): 2+ Labs Labs Labs: Blood Type O POSITIVE Antibody Screen NEGATIVE Hct 40.6 % (37-47) Hgb 14.2 g/dL (12.0-15.0) Syphilis Total Ab Pending Rubella IgG Antibody 65.1 IU/mL Hep Bs Antigen Non-Reactive (Nonreactive) Hepatitis C Antibody Non-Reactive (Nonreactive) HIV 1&2 Antibody Non-Reactive (Nonreactive) Glucose 1 Hr 50 gm 195 mg/dL (70-140) H Gest Glucose Tolerance MG/DL Rhogam given: No Assessment & Plan (1) History of gestational diabetes: (2) 41 weeks gestation of : (3) Encounter for induction of labor: (4) Smoker: (5) Obesity: PLAN: Plan 1) Admit to labor and delivery 2) Routine labs 3) GBS positive 4) Induction of labor, pitocin per protocol 5) Pain managemetn upon request 6) Category 2 FHT, continue to monitor 7) Dr. Becker collaborative physician and notified of patient status, above assessment, and plan.
[2024-07-01 09:04] LABS: Amphetamine Urine VISTA NEGATIVE (<1000 ng/mL); Barbiturate Urine VISTA NEGATIVE (< 200 ng/mL); Benzodiazepine Urine VISTA NEGATIVE (< 200 ng/mL); Cocaine Urine VISTA NEGATIVE (< 300 ng/mL); Ecstacy Urine VISTA NEGATIVE (< 500 ng/mL); Methadone Urine VISTA NEGATIVE (< 300 ng/mL); PCP Urine VISTA NEGATIVE (< 25 ng/mL); THC Urine VISTA POSITIVE (< 50 ng/mL); Vista UDS pH Range 5
[2024-07-01] MEDS: Lactated Ringers 1,000 ML 100 ML IV (09:15)
[2024-07-01] MEDS: LACTATED RINGERS 500 ML 999 ML IV ×2 (11:39→17:56)
--- NOTE | 2024-07-01 13:04 | PCM.PN.OB ---
Subjective Subjective Hands and knees in bed, unmedicated. Objective Data Objective Data Vital Signs: Vital Signs Temp Pulse Resp BP Pulse Ox 97.7 F L 66 16 113/65 97 07/01/24 12:44 07/01/24 12:45 07/01/24 12:44 07/01/24 12:44 07/01/24 12:45 Weight: 221 lb Body Mass Index (BMI) 34.6 Intake & Output: Intake and Output for Last 24 Hours 06/29/24 06/30/24 07/01/24 23:59 23:59 23:59 Intake Total 1260.18 / 1260.18 Balance 1260.18 / 1260.18 Lab / Micro Data 07/01/24 08:00 Labs: Laboratory Results - last 24 hr 07/01/24 08:00: WBC 14.3 H, RBC 4.34, Hgb 14.2, Hct 40.6, MCV 93.5, MCH 32.7 H, MCHC 35.0, RDW Std Deviation 41.9, RDW Coeff of Elle 12.0, Plt Count 220, MPV 10.3, Immature Gran % (Auto) 0.400, Neut % (Auto) 75.2 H, Lymph % (Auto) 18.4 L, [place] % (Auto) 5.0, Eos % (Auto) 0.7, Baso % (Auto) 0.3, Absolute Neuts (auto) 10.7 H, Absolute Lymphs (auto) 2.63, Nucleated RBC % 0, Urine Opiates Screen NEGATIVE, Urine Methadone Screen NEGATIVE, Ur Barbiturates Screen NEGATIVE, Ur Phencyclidine Scrn NEGATIVE, Ur Amphetamines Screen NEGATIVE, MDMA (Ecstasy) Screen NEGATIVE, U Benzodiazepines Scrn NEGATIVE, Urine Cocaine Screen NEGATIVE, U Cannabinoids Screen POSITIVE H, Ur Drug Screen Comment , Blood Type O POSITIVE, Antibody Screen NEGATIVE Physical Exam Narrative: AROM clear fluid. IUPC and FSE inserted. 5/70%/-2 NST FHR Rate Baby A Baseline: 140 Variability:: Moderate Accelerations:: 15 x 15 Decelerations:: Variable FHR Category:: Category II Uterine Activity:: Irregular Assessment & Plan (1) Category II heart rate tracing during labor and delivery: (2) Obesity: (3) Smoker: (4) 41 weeks gestation of : (5) Encounter for induction of labor: PLAN: Plan 1) AROM 2) Restart pitocin after recovery and heart tracing improved 3) present and viewed tracing, notified on patient status 4) Continue with active management 5) Planning unmedicated , epidural upon request
[2024-07-01] MEDS: fentaNYL-bupivacaine (epidural) 100 ML BAG EPIDURAL ×2 (14:33→18:41)
[2024-07-01 15:50] LABS: Syphilis Antibodies Non-reactive
[2024-07-01] MEDS: Lactated Ringers 1,000 ML 200 ML IV (17:46)
[2024-07-01] MEDS: Amnioinfusion- 0.9% NS 1,000 ML IV.SOLN. 1000 ML INTRA-UTER (18:13)
[2024-07-01] MEDS: Oxytocin 15 Units/NS 250ml 15 UNITS/250 ML IV.SOLN 334 UNITS IV (19:24)
--- NOTE | 2024-07-01 19:34 | EX.PCM.OBRPT ---
Assessment & Plan (1) Vaginal delivery: (2) Thin meconium stained amniotic fluid: Maternal Data Information GIOVANNI Calculator Estimated Delivery Date Method Current WG Current Estimate 06/21/24 Manual 41w 3d Vaginal Delivery Maternal Presentation Maternal Presentation: Medically Indicated Induction Type of Induction: Pitocin Operative Information Date of Procedure: 07/01/24 Pre-Operative Diagnosis: Induction of labor, post term Post-Operative Diagnosis: Surgery / Procedure Performed: Spontaneous Vaginal Delivery Type of Anesthesia: Epidural Estimated Blood Loss: 300 ml Time of Delivery: 19:21 Findings Description of Procedure: Progressed to complete with urge to push. Epidural for pain management. of viable male infant over intact perineum. APGARS 8,9 respectively. Infant head delivered with body immediately forthcoming. Placed on maternal abdomen, strong cry. Mouth and nares suctioned for secretions. Pitocin started for active 3rd stage management. Cord doubly clamped and cut by FOB after pulsations ceased, delayed cord clamping. Placenta delivered intact via galvez , 3 vessel cord intact. Perineum inspected and revealed intact. Fundus firm and hemostasis achieved. EBL 300ml . Mom and baby stable, planning to bottle feed. Family bonding well. notified of delivery. Presentation: Vertex and DIOMEDES Amniotic Membrane Rupture Type: Artificial Amniotic Fluid Description: Lightly stained meconium (clear with AROM, MEC at delivery) Placental Delivery Description: Spontaneous Placenta Disposition: [facility] Cord Vessel Description: 3 Vessels Cord Entanglement: None A Gender: Male (1 minute): 9 (5 minute): 9 Delayed Cord Clamping: Yes Post Vaginal Delivery Medications Given After Delivery: IV Pitocin Episiotomy Description: None Laceration: None Complication Complications: None
[2024-07-01] MEDS: Oxytocin 15 Units/NS 250ml 15 UNITS/250 ML IV.SOLN 83 UNITS IV (20:09)
[2024-07-02] VITALS (7 sets, daily range): BP systolic 116–122; BP diastolic 59–86; PULSE 45–77; RESP 14–16; TEMP 36.3–36.7; O2SAT 96–99
[2024-07-02 05:42] LABS: Absolute Lymphocyte Count 2.63 X10^3/uL (0.83-4.51); Absolute Neutrophil Count 15.6 X10^3/uL (2.0-7.7); Basophil# 0.04 X10^3/uL; Basophil% 0.2 % (0-1); Eosinophil# 0.07 X10^3/uL; Eosinophils% 0.4 % (0-5); Hematocrit 34.7 % (37-47); Hemoglobin 11.8 g/dL (12.0-15.0); Lymphocyte # 2.63 X10^3/ul (0.83-4.51); Lymphocyte % 13.5 % (19-41); Mean Corpuscular Hgb 32.3 pg (27.0-32.0); Mean Corpuscular Volume 95.1 fL (81-99); Mean Platelet Vol. 10.2 fl (6.2-12.0); Monocyte# 1.06 X10^3/uL; Monocyte% 5.4 % (0-10); NRBC Flagged by Analyzer 0 % (0-5); Neutrophil # 15.59 X10^3/uL (2.7-7.7); Neutrophil % 80.1 % (47-70); Platelet Count 174 K/mm3 (150-450); RBC Distribution Width CV 12.2 % (11.6-14.6); RBC Distribution Width SD 42.5 fl (35.1-43.9); Red Blood Count 3.65 M/mm3 (4.2-5.4); White Blood Count 19.5 K/mm3 (4.4-11.0)
[2024-07-02] MEDS: FLUoxetine 20 MG Capsule PO (10:14)
[2024-07-02] MEDS: FLU VACC 2024-25(6MOS UP)/PF 45 MCG/0.5 ML SYRINGE IM (10:15)
--- NOTE | 2024-07-02 11:09 | PN.OBGYN_ITS ---
Subjective Subjective Doing well per patient and nursing staff. Ambulating and taking PO without difficulty. Voiding and passing flatus. Pain controlled. Bottle feeding. Denies headache, visual changes, chest pain, shortness of breath, leg pain or increased bleeding. Lochia normal. Objective Data Objective Data Vital Signs: Vital Signs Temp Pulse Resp BP Pulse Ox O2 Del Method 98.1 F 55 L 16 117/59 L 99 Room Air 07/02/24 07:57 07/02/24 07:57 07/02/24 07:57 07/02/24 07:57 07/02/24 07:57 07/02/24 07:57 Oxygen Delivery Method Room Air Weight: 221 lb Body Mass Index (BMI) 34.6 Intake & Output: Intake and Output for Last 24 Hours 06/30/24 07/01/24 07/02/24 23:59 23:59 23:59 Intake Total 4532.74 / 4532.74 250 / 250 Output Total 1200 / 1200 600 / 600 Balance 3332.74 / 3332.74 -350 / -350 Lab / Micro Data 07/02/24 05:20 Labs: Laboratory Results - last 24 hr 07/01/24 08:00: Syphilis Total Ab Non-reactive 07/02/24 05:20: WBC 19.5 H, RBC 3.65 L, Hgb 11.8 L, Hct 34.7 L, MCV 95.1, MCH 32.3 H, MCHC 34.0, RDW Std Deviation 42.5, RDW Coeff of Elle 12.2, Plt Count 174, MPV 10.2, Immature Gran % (Auto) 0.400, Neut % (Auto) 80.1 H, Lymph % (Auto) 13.5 L, [place] % (Auto) 5.4, Eos % (Auto) 0.4, Baso % (Auto) 0.2, Absolute Neuts (auto) 15.6 H, Absolute Lymphs (auto) 2.63, Nucleated RBC % 0 ROS Constitutional Constitutional: Reports systems reviewed and no addt'l complaints, except as documented; Denies headache(s) Eyes Eyes: Denies acute decrease in peripheral vision, blurry vision or change in vision ENT HEENT: Reports systems reviewed and no addt'l complaints, except as documented Cardiovascular Cardiovascular: Denies chest pain or dizziness Respiratory/Chest Respiratory/Chest: Denies cough, dyspnea, dyspnea on exertion, shortness of breath at rest or shortness of breath with exertion Gastrointestinal Gastrointestinal: Denies abdominal pain, diarrhea, nausea or vomiting Genitourinary Genitourinary: Denies abdominal discomfort Musculoskeletal Musculoskeletal: Denies limited range of motion Integumentary Integumentary: Reports systems reviewed and no addt'l complaints, except as documented Neurologic Neurologic: Reports systems reviewed and no addt'l complaints, except as documented Psychiatric Psychiatric: Reports systems reviewed and no addt'l complaints, except as documented Endocrine Endocrinology: Reports systems reviewed and no addt'l complaints, except as documented Hematologic/Lymphatic Hematologic/Lymphatic: Reports systems reviewed and no addt'l complaints, except as documented Allergic/Immunologic Allergic/Immunologic: Reports systems reviewed and no addt'l complaints, except as documented Physical Exam Const alert and oriented x3 General Appearance: cooperative Orientation / Consciousness: awake, oriented to person, oriented to place and oriented to time Exam Limitations: no limitations HEENT normocephalic Head and Scalp: normal to inspection, normocephalic and atraumatic Face and Sinus: normal facial exam Eyes General Eye: normal appearance of both eyes Neck full ROM Chest Chest: symmetrical chest wall rise Resp normal respiratory effort and normal air movement Auscultation: clear to auscultation bilaterally Cardio regular rate, regular rhythm, S1 normal heart sound, S2 normal heart sound, no murmurs, no rub, no gallops and no clicks GI normal to inspection, nondistended, normoactive bowel sounds and non-tender appearance of the vagina normal Bladder / Kidney Exam: no CVA tenderness Back/Spine normal ROM Extremity normal to inspection and full ROM Skin no rashes or lesions noted Neuro oriented x3 and moves all extremities Sensorium / Orientation: awake, alert and oriented to person Motor Exam: clonus absent Deep Tendon Reflexes: Rt Patellar (L4): 2+ and Lt Patellar (L4): 2+ Assessment & Plan (1) Vaginal delivery: (2) Thin meconium stained amniotic fluid: PLAN: Plan 1) Routine PP care 2) Vitals stable 3) Pain management 4) D/C home
--- NOTE | 2024-07-02 11:12 | PCM.DC ---
Discharge Instructions Diet Discharge Diet: No restrictions Activity Discharge Activity: Return to Normal Activity, May Drive, May Shower and May Take a Tub Bath May resume sexual activity in: 6 weeks Weight Bearing Status: Full weight bearing Dressing / Incision Call your doctor if you observe: Fever of 101 or Higher, Inability to urinate, Using more than 1 pad per hour, Shortness of breath, Chest pain, Increased palpitations (irregular heartbeat), Calf discomfort and Uncontrolled pain Follow Up Care Please Follow Up With: Amarilys Canales CNM When: 2 week virtual visit and 6 week visit Test Results: Test results from this visit will be discussed in further detail at your follow-up appointment, if applicable. Discharge Plan Admission Admit Date/Time: 07/01/24 07:41 Primary Reason for Your Visit: Vaginal Delivery Attending Provider: Amarilys Canales Primary Care Provider: Ava Culver NP Discharge Orders/Prescriptions Prescriptions: New acetaminophen 500 mg Tablet 1,000 mg PO Q6H PRN PRN (Reason: Pain 1-10 Or Fever) Qty: 0 0RF ibuprofen 600 mg Tablet 600 mg PO Q6H PRN PRN (Reason: Pain Score 1-10) Qty: 0 0RF Continued albuterol sulfate 1 INHALER inhaler 1 - 2 puff inhalation PRN PRN (Reason: Asthma) vit,[id number] 1 TABLET tablet 1 tab PO DAILY Breo Ellipta 100-25 Mcg INH 1 puff inhalation DAILY fluoxetine 20 MG capsule 20 mg PO DAILY Discontinued aspirin [Adult Low Dose Aspirin] 81 mg tablet,delayed release (DR/EC) 81 mg PO DAILY Referrals / Follow Up: Ava Culver MOTION PICTURE SET WORKER, [employer]ION PICTURE SET WORKER-C [Primary Care Provider] - Disposition Disposition (needs filled in before D/C Order can be placed): Home, Self Care
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
--- NOTE | 2024-07-02 15:04 | CASEMGMT ---
Social Work: aircraft layout worker made phone contact with [facility] [employer] Radha. aircraft layout worker made a referral due to testing positive for marijuana at at which point Radha informed social sciences department chair it would likely be screened out. Gisel Cordero, RADIOISOTOPE TECHNICIAN, LUNCHROOM AIDE
[2024-07-02] MEDS: Ibuprofen 600 MG Tablet PO (20:13)
== END 2024-07-02 21:05 | disposition home or self-care (01) | DRG 560 ==
PROVIDERS: Admitting Provider Advanced Practice Midwife; PCP Nurse Practitioner Family; Referring Provider Advanced Practice Midwife; Visit Provider Advanced Practice Midwife
DX: O48.0 Post-term pregnancy (principal); Z37.0 Single live birth; F17.210 Nicotine dependence, cigarettes, uncomplicated; O99.214 Obesity complicating childbirth; O77.0 Labor and delivery complicated by meconium in amniotic fluid; O99.334 Smoking (tobacco) complicating childbirth; Z3A.41 41 weeks gestation of pregnancy; Z79.82 Long term (current) use of aspirin; Z90.49 Acquired absence of other specified parts of digestive tract; Z86.32 Personal history of gestational diabetes
CPT/HCPCS: 59025; 59050; 80307; 85025; 86780; 86850; 86900; 86901; 90656; 99221; J7030; J7120; G0378